=== PATIENT | male | born 1940 | race Caucasian/White ===

== ENCOUNTER → 2019-11-17 05:00 | Outpatient (REF) | payer MEDICARE, SELFPAY ==
[2019-11-17 07:46] LABS: Prothrombin Time Fingerstick 20.5 SEC (11.9-14.4)
== END ==
LOC: OLS.ACW200 05:00
PROVIDERS: Visit Provider Internal Medicine
DX: Z47.89 Encounter for other orthopedic aftercare (principal); S72.002D Fracture of unspecified part of neck of left femur, subsequent encounter for closed fracture with routine healing; S52.502D Unspecified fracture of the lower end of left radius, subsequent encounter for closed fracture with routine healing; I48.91 Unspecified atrial fibrillation
CPT/HCPCS: 36416; 85610

== ENCOUNTER → 2019-11-24 04:00 | Outpatient (REF) | payer MEDICARE, SELFPAY ==
[2019-11-24 07:04] LABS: International Normalized Ratio 1.4; Prothrombin Time (Protime)PT. 16.7 SECONDS (11.7-14.9)
== END ==
LOC: OLS.ACW200 04:00
PROVIDERS: Visit Provider Internal Medicine
DX: Z47.89 Encounter for other orthopedic aftercare (principal); S72.002D Fracture of unspecified part of neck of left femur, subsequent encounter for closed fracture with routine healing; S52.502D Unspecified fracture of the lower end of left radius, subsequent encounter for closed fracture with routine healing; I48.91 Unspecified atrial fibrillation
CPT/HCPCS: 36415; 85610

== ENCOUNTER → 2019-12-02 05:00 | Outpatient (REF) | payer MEDICARE, BC, SELFPAY ==
[2019-12-02 07:25] LABS: Prothrombin Time Fingerstick 19.3 SEC (11.9-14.4)
== END ==
LOC: OLS.ACW300 05:00
PROVIDERS: Visit Provider Internal Medicine
DX: Z47.89 Encounter for other orthopedic aftercare (principal); I48.91 Unspecified atrial fibrillation; S72.002D Fracture of unspecified part of neck of left femur, subsequent encounter for closed fracture with routine healing; S52.502D Unspecified fracture of the lower end of left radius, subsequent encounter for closed fracture with routine healing; Z79.899 Other long term (current) drug therapy
CPT/HCPCS: 36416; 85610

== ENCOUNTER → 2020-01-05 05:00 | Outpatient (REF) | payer MEDICARE, BC, SELFPAY ==
[2020-01-05 07:46] LABS: Prothrombin Time Fingerstick 17.6 SEC (11.9-14.4)
== END ==
LOC: OLS.ACW100 05:00
PROVIDERS: Visit Provider Internal Medicine
DX: I73.9 Peripheral vascular disease, unspecified (principal); S72.002D Fracture of unspecified part of neck of left femur, subsequent encounter for closed fracture with routine healing; S52.502D Unspecified fracture of the lower end of left radius, subsequent encounter for closed fracture with routine healing; Z47.89 Encounter for other orthopedic aftercare
CPT/HCPCS: 36416; 85610

== ENCOUNTER → 2020-01-09 05:00 | Outpatient (REF) | payer MEDICARE, BC, SELFPAY ==
[2020-01-09 08:56] LABS: Prothrombin Time Fingerstick 22.2 SEC (11.9-14.4)
== END ==
LOC: OLS.ACW200 05:00
PROVIDERS: Visit Provider Internal Medicine
DX: S72.002D Fracture of unspecified part of neck of left femur, subsequent encounter for closed fracture with routine healing (principal); S52.502D Unspecified fracture of the lower end of left radius, subsequent encounter for closed fracture with routine healing; I73.9 Peripheral vascular disease, unspecified; Z47.89 Encounter for other orthopedic aftercare
CPT/HCPCS: 36416; 85610

== ENCOUNTER → 2020-03-11 14:00 | Outpatient (REF) | payer MEDICARE, SELFPAY ==
[2020-03-11 15:21] LABS: Prothrombin Time (Protime)PT. 22.5 SECONDS (11.7-14.9)
== END ==
LOC: OLS.ACW200 14:00
PROVIDERS: Visit Provider Internal Medicine
DX: G93.41 Metabolic encephalopathy (principal); E11.51 Type 2 diabetes mellitus with diabetic peripheral angiopathy without gangrene; I63.9 Cerebral infarction, unspecified; I48.91 Unspecified atrial fibrillation; E03.9 Hypothyroidism, unspecified
CPT/HCPCS: 36415; 85610

== ENCOUNTER → 2020-04-07 05:15 | Outpatient (REF) | payer MEDICARE, BC, SELFPAY | LOC: OLS.ACW200 05:15 | PROVIDERS: Referring Provider Internal Medicine; Visit Provider Internal Medicine | DX: Z11.59 Encounter for screening for other viral diseases (principal); G93.41 Metabolic encephalopathy; K92.2 Gastrointestinal hemorrhage, unspecified; E11.51 Type 2 diabetes mellitus with diabetic peripheral angiopathy without gangrene; I63.9 Cerebral infarction, unspecified; I48.91 Unspecified atrial fibrillation | CPT/HCPCS: 87635; U0003 ==